=== PATIENT | male | born 1950 | race Caucasian/White ===

== ENCOUNTER 2022-06-18 14:58 | Inpatient (IN) | payer MEDICARE, OTHER ==
[~2022-06-18] VITALS: Ht 175.3 cm; Wt 117.9 kg
[2022-06-18] MEDS ORDERED: ALBUTEROL SULFATE 2.5 MG/3 ML NEBU NEB ONE ×2 (15:30→16:15)
[2022-06-18] MEDS ORDERED: predniSONE 10 MG TABLET PO ONE (15:30)
[2022-06-18] MEDS ORDERED: IPRATROPIUM BROMIDE 0.5 MG/2.5 ML NEBU NEB ONE (15:30)
[2022-06-18] MEDS ORDERED: ALBUTEROL SULFATE 2.5 MG/3 ML NEBU ONE (15:37)
[2022-06-18] MEDS ORDERED: IPRATROPIUM BROMIDE 0.5 MG/2.5 ML NEBU ONE (15:37)
[2022-06-18 15:49] LABS: HEMATOCRIT 52.3 % (36.7-47.1); MEAN CORPUSCULAR HEMOGLOBIN 29.7 uug (23.8-33.4); PLATELET COUNT (AUTO) 175 K/uL (152-348)
[2022-06-18 16:00] LABS: CARBON DIOXIDE 24 mmol/L (21-32); CHLORIDE 101 mmol/L (98-107); GLUCOSE 139 mg/dL (74-106); POTASSIUM 4.7 mmol/L (3.5-5.1); UREA NITROGEN, BLOOD 16 mg/dL (7-18)
[2022-06-18] MEDS ORDERED: predniSONE 20 MG TABLET ONE (16:11)
[2022-06-18 16:13] LABS: ALANINE AMINOTRANSFERASE 27 U/L (16-63); ALKALINE PHOSPHATASE 93 U/L (50-136); ASPARTATE AMINOTRANSFERASE 17 U/L (15-37); BILIRUBIN,DIRECT 0.3 mg/dL (0.0-0.2); BILIRUBIN,TOTAL 1.5 mg/dL (0.2-1.0); TOTAL PROTEIN, SERUM 8.2 g/dL (6.4-8.2)
--- NOTE | 2022-06-18 16:14 | NUR ---
Lab called regarding critical lab result. Patient's troponin 180. notified.
[2022-06-18] MEDS ORDERED: ASPIRIN 325 MG TABLET PO ONE (16:30)
[2022-06-18] MEDS ORDERED: NITROGLYCERIN 0.4 MG/TAB BOTTLE SL ONE ×2 (16:45→17:09)
--- NOTE | 2022-06-18 16:45 | NUR ---
Patient placed on BiPap with settings of IPAP 16, EPAP 8, FiO2 of 30%.
[2022-06-18 17:38] LABS: ABG BASE EXCESS -2.9 mmol/L; ABG PCO2 35.1 mmHg (35.0-45.0); ABG PH 7.395 (7.350-7.450); ABG PO2 176.6 mmHg (75.0-100.0); ABG SITE LEFT BRACHIAL; ABG TOTAL HEMOGLOBIN 18.4 G/dL (13.5-18.0); COHb 0.4 % (0.5-1.5); MetHb 0.4 % (0.0-1.5); O2Hb 98.7 % (94.0-97.0)
--- NOTE | 2022-06-18 18:06 | NUR ---
Lab called to report critical lab result for patient. Patient's troponin is 159. Notified .
[2022-06-18] MEDS ORDERED: FUROSEMIDE 20 MG/2 ML VIAL IV ONE (18:15)
--- NOTE | 2022-06-18 18:15 | NUR ---
Patient to go to room 303.
[2022-06-18] MEDS ORDERED: ACETAMINOPHEN 325 MG TABLET PO PRN (19:30)
[2022-06-18] MEDS ORDERED: TEMAZEPAM 15 MG CAPSULE PO PRN (19:30)
[2022-06-18] MEDS ORDERED: ONDANSETRON 4 MG/2 ML VIAL IV PRN (19:30)
[2022-06-18] MEDS ORDERED: MAGNESIUM HYDROXIDE 30 ML LIQUID UDC PO PRN (19:30)
[2022-06-18] MEDS ORDERED: ALBUTEROL SULFATE 2.5 MG/ 0.5 ML NEBU NEB PRN (19:30)
[2022-06-18] MEDS ORDERED: HYDROCODONE/APAP 5-325MG TABLET PO PRN (19:30)
[2022-06-18] MEDS ORDERED: SACU1TAB PO (20:02)
[2022-06-18] MEDS ORDERED: CARV12.52 PO (20:02)
[2022-06-18 21:34] VITALS: BP 150/77
[2022-06-19] VITALS: BP 148/68
[2022-06-19 04:00] VITALS: BP 135/89
[2022-06-19 06:18] LABS: HEMATOCRIT 48.7 % (36.7-47.1); MEAN CORPUSCULAR HEMOGLOBIN 29.9 uug (23.8-33.4); MEAN CORPUSCULAR VOLUME 89.4 fL (73.0-96.2); PLATELET COUNT (AUTO) 154 K/uL (152-348)
[2022-06-19 06:40] LABS: BILIRUBIN,TOTAL 1.3 mg/dL (0.2-1.0); MAGNESIUM 2.4 mg/dL (1.8-2.4); PHOSPHOROUS 3.8 mg/dL (2.5-4.9); POTASSIUM 4.5 mmol/L (3.5-5.1); TOTAL PROTEIN, SERUM 7.7 g/dL (6.4-8.2)
[2022-06-19 06:42] LABS: THYROID STIMULATING HORMONE 1.661 mIU/mL (0.358-3.740)
[2022-06-19] MEDS: PANTOPRAZOLE SODIUM 40 MG TABLET.DR PO SCH ×2 (07:00→08:55)
--- NOTE | 2022-06-19 07:00 | NUR ---
Received patient lying in bed asleep. No signs or symptoms of pain or SOB. Pt on BiPAP. NSR on tele with HR of 55/min, MD aware. Bed in lowest position and bed alarm on with side rails up x2. Will continue to monitor.
[2022-06-19 07:37] VITALS: BP 163/73
--- NOTE | 2022-06-19 08:00 | NUR ---
AWAKE ALERT AND ORIENTED X3 ABLE TO VERBALIZE NEEDS, COOPERATIVE, ON A BI-PAP 16/, 30% saturating 98%. denies chest pain. SR ON MONITOR
[2022-06-19] MEDS ORDERED: ASPIRIN 81 MG TAB.CHEW PO ONE (09:00)
[2022-06-19] MEDS ORDERED: FUROSEMIDE 20 MG/2 ML VIAL IV ONE (09:00)
--- NOTE | 2022-06-19 10:25 | NUR ---
GAVE PT EDUCATION PRINT OUTS FOR SMOKING CESSATION AND HEART FAILURE. PT AND FAMILY MEMBER VERBALIZED UNDERSTANDING AND WILL ASK ANY QUESTIONS IF THEY ARISE.
[2022-06-19] MEDS ORDERED: DEXTROSE 50% 50 ML DISP.SYRIN IV PRN (11:15)
[2022-06-19] MEDS: BLOOD SUGAR DIAGNOSTIC 1 EACH STRIP VI SCH ×3 (11:52→20:30)
[2022-06-19] MEDS: INSULIN REGULAR, HUMAN 300 UNIT/3 ML VIAL SQ PRN ×2 (11:55→20:37)
[2022-06-19 12:00] VITALS: BP 136/63
--- NOTE | 2022-06-19 12:00 | NUR ---
SEEN BY DR BRYSON FOR FOLLOW-UP DISCUSSED PLAN OF CARE WITH PATIENT
[2022-06-19] MEDS: GUAIFENESIN/DEXTROMETHORPHAN 5 ML UDC PO PRN ×2 (15:42→23:02)
[2022-06-19 16:25] VITALS: BP 129/84
[2022-06-19] MEDS: METFORMIN HCL 500 MG TABLET PO SCH (17:42)
[2022-06-19] MEDS: SACUBITRIL/VALSARTAN 24 MG-26 TABLET PO SCH (17:43)
--- NOTE | 2022-06-19 18:43 | NUR ---
PATIENT STILL C/O ON AND OFF SOB AND COUGH, PRN MEDS GIVEN. CONTINUE O2 NC DURING MEALS AND BACK TO BIPAP IN BETWEEN. PLAN 2DECHO IN AM AND DISCHARGE REGARDING RESULT PER DR DEL VALLE. REMAINS SR/SB ON MONITOR
[2022-06-19 20:00] VITALS: BP 132/70
[2022-06-19] MEDS ORDERED: DOCUSATE SODIUM 100 MG CAPSULE PO SCH (21:00)
--- NOTE | 2022-06-19 21:00 | NUR ---
Patient alert oriented no chest pain, sob on exertion, on bipap 16/5, tolerate well, saturation 96%, still complain of episode of coughing, tele sinus rhythm, sinus zaid on low 50's, no complain of pain , cont to monitor
[2022-06-20 04:00] VITALS: BP 130/75
[2022-06-20] MEDS: BLOOD SUGAR DIAGNOSTIC 1 EACH STRIP VI SCH ×2 (05:38→11:49)
--- NOTE | 2022-06-20 06:26 | NUR ---
Patient asleep but arousable no sob at this time, at rest, no chest pain noted at this time, on cpap machine as ordered settings, took cough meds with effective results, sinus on tele, cont to monitor.
--- NOTE | 2022-06-20 08:00 | NUR ---
AWAKE ALERT AND VERBALLY RESPONSIVE STILL WITH ON AND OFF SOB AND PRODUCTIVE. COUGH. ROUTINE ROBITUSSIN GIVEN PRN WITH HELP. CONTINUE WITH O2 3L NC DURING MEALS, AND BI-PAP NEEDED. O2 SATS 97-98%
[2022-06-20] MEDS: INSULIN REGULAR, HUMAN 300 UNIT/3 ML VIAL SQ PRN ×2 (08:01→11:50)
[2022-06-20] MEDS: METFORMIN HCL 500 MG TABLET PO SCH (08:20)
[2022-06-20] MEDS: SACUBITRIL/VALSARTAN 24 MG-26 TABLET PO SCH (08:21)
[2022-06-20] MEDS ORDERED: ASPIRIN EC 81 MG TABLET.DR PO SCH (09:00)
[2022-06-20] MEDS ORDERED: FUROSEMIDE 20 MG/2 ML VIAL IV SCH (09:30)
[2022-06-20 09:54] LABS: HEMATOCRIT 50.5 % (36.7-47.1); MEAN CORPUSCULAR HEMOGLOBIN 30.3 uug (23.8-33.4); MEAN CORPUSCULAR VOLUME 90.5 fL (73.0-96.2); PLATELET COUNT (AUTO) 165 K/uL (152-348)
[2022-06-20] MEDS ORDERED: levoFLOXacin 500 MG/D5W 500 MG in PREMIXED 1 EACH IV SCH (10:00)
[2022-06-20 10:21] LABS: CREATININE 1.3 mg/dL (0.6-1.3); POTASSIUM 4.9 mmol/L (3.5-5.1)
[2022-06-20 10:27] LABS: BILIRUBIN,TOTAL 1.5 mg/dL (0.2-1.0); MAGNESIUM 2.3 mg/dL (1.8-2.4); PHOSPHOROUS 3.4 mg/dL (2.5-4.9); TOTAL PROTEIN, SERUM 7.8 g/dL (6.4-8.2)
[2022-06-20] MEDS ORDERED: ALBUTEROL SULFATE 2.5 MG/3 ML NEBU NEB PRN ×2 (10:45→11:00)
[2022-06-20] MEDS ORDERED: ALBUTEROL SULFATE 8 GM HFA.AER.AD IH PRN (10:45)
--- NOTE | 2022-06-20 11:00 | NUR ---
SEEN BY DR FLORES WITH ORDERS. STARTED ON IV LEVAQUIN AND LASIX IV
[2022-06-20] MEDS: GUAIFENESIN/DEXTROMETHORPHAN 5 ML UDC PO PRN (11:53)
[2022-06-20 12:13] VITALS: BP 126/84
[2022-06-20] MEDS ORDERED: FURO-152 PO (12:26)
[2022-06-20] MEDS ORDERED: LEVO500T90 PO (12:26)
--- NOTE | 2022-06-20 12:30 | NUR ---
BREATHING TX GIVEN O2 SAT RANGES 95-99% ON 3L NC, COMPLETED IV LEVAQUIN NO REACTION NOTED. ECHO DONE 35% EF SR/SB ON MONITOR
--- NOTE | 2022-06-20 13:09 | NUR ---
DISCHARGED HOME STABLE ACCOMPANIED BY VIA CAR. MEDICATION AND FOLLOW-UP INSTRUCTION GIVEN
[2022-06-20] MEDS ORDERED: ATORVASTATIN 20 MG TABLET PO SCH (21:00)
== END 2022-06-20 13:10 | disposition home or self-care (01) | DRG 177 ==
LOC: ER 15:04 → DOU3 20:46 → TELE-TD3 20:50 → TELE3 06-20 11:45
PROVIDERS: ADMIT Internal Medicine; ATTEND Internal Medicine
DX: J15.6 Pneumonia due to other Gram-negative bacteria (principal); I50.23 Acute on chronic systolic (congestive) heart failure; I24.9 Acute ischemic heart disease, unspecified; I11.0 Hypertensive heart disease with heart failure; E11.65 Type 2 diabetes mellitus with hyperglycemia; E80.6 Other disorders of bilirubin metabolism; E66.9 Obesity, unspecified; E78.5 Hyperlipidemia, unspecified; Z68.38 Body mass index [BMI] 38.0-38.9, adult; Z20.822 Contact with and (suspected) exposure to COVID-19; J40 Bronchitis, not specified as acute or chronic; I25.10 Atherosclerotic heart disease of native coronary artery without angina pectoris
CPT/HCPCS: 36415; 36600; 71045; 83550; 83735; 84100; 84443; 84484; 85025; 93005; 93307; 94660; 94664; 99082-TC; A4663; G0378; J1815; J1940; J1956; J3590; J7512